=== PATIENT | female | born 1985 | race Caucasian/White ===

== ENCOUNTER 2016-12-17 20:37 | Emergency (ER) | payer OTHER ==
[~2016-12-17] VITALS: Ht 160 cm; Wt 55.5 kg
[2016-12-17 21:07] VITALS: Ht 160 cm; Wt 55.5 kg
[2016-12-17] MEDS ORDERED: CLIN-73 PO (22:19)
[2016-12-17] MEDS ORDERED: CLINDAMYCIN 300 MG INJ IM ONE (22:30)
[2016-12-17] MEDS ORDERED: CLINDAMYCIN 600 MG INJ IM ONE (23:00)
[2016-12-17 23:06] VITALS: BP 109/68; PULSE 78; RESP 17; TEMP 98.5
--- NOTE | 2016-12-17 23:29 | ERD ---
ER Documentation Chief Complaint Date/Time DATE: 12/17/16 TIME: 23:16 Chief Complaint peritonsilar abscess possible drain. PO antibiotics done HPI 31-year-old female complaining of left-sided tonsillar pain 1 week. Patient stated that she was diagnosed with tonsillitis by her PCP, and will was taking amoxicillin. She had finished amoxicillin, but her pain has not improved. She went to see her PCP earlier today, and was told to come to the ED because she has peritonsillar abscess and he needs to be drained. Denies fever or chills. Denies purulent drainage. ROS All systems reviewed and are negative except as per history of present illness. Medications Home Meds Active Scripts Clindamycin Hcl* (Clindamycin Hcl*) 300 Mg Capsule, 300 MG PO TID for 10 Days, CAP Prov:ESTEPHANIE GRESHAM [employer] 12/17/16 Allergies Allergies: Coded Allergies: No Known Allergy (Unverified , 12/17/16) PMhx/Soc Medical and Surgical Hx: pt denies Medical Hx, pt denies Surgical Hx History of Surgery: No Anesthesia Reaction: No Hx Neurological Disorder: No Hx Respiratory Disorders: No Hx Cardiac Disorders: No Hx Psychiatric Problems: No Hx Miscellaneous Medical Probl: No Hx Alcohol Use: No Hx Substance Use: No Hx Tobacco Use: No Smoking Status: Never smoker Physical Exam Vitals Vital Signs Date Time Temp Pulse Resp B/P Pulse Ox O2 Delivery O2 Flow Rate FiO2 12/17/16 23:06 98.5 78 17 109/68 100 Room Air 12/17/16 21:07 99.9 83 20 119/75 100 Physical Exam General: Well-developed, well-nourished, conscious and coherent, in no distress Skin: Warm and dry without rash, good texture and turgor Head: Normocephalic without evidence of trauma Eyes: Sclera and conjunctivae normal; pupils equal, round, and reactive to light; extraocular movements are intact Mouth/throat: Mucous membranes are moist. Left tonsillar erythematous and swollen with purulent exudate, nonfluctuant. Slight uvula deviation to the right, no trismus. Neck: Supple without meningismus or adenopathy. Carotids are equal. Trachea midline. No bruits or JVD Chest: Normal AP diameter. Good expansion without retractions. Nontender. Lungs are clear to auscultate bilaterally with good tidal volume Heart: Regular rate and rhythm. No murmur, rub, or gallops heard Extremities: Full range of motion. Good strength bilaterally. No clubbing, cyanosis, or edema. Peripheral pulses are intact. Sensation intact Neuro: Alert and oriented 4, GCS 15. Cranial nerves grossly intact. Motor and sensory exams nonfocal. Moves all extremities. Speech clear. Gait normal Results 24 hrs Current Medications Medications (Trade) Dose Ordered Sig/Neil Route PRN Reason Start Time Stop Time Status Last Admin Dose Admin Clindamycin Phosphate (Cleocin) 300 mg ONCE ONCE IM 12/17/16 22:30 12/17/16 22:31 DC Clindamycin Phosphate (Cleocin) 300 mg ONCE ONCE IM 12/17/16 23:00 12/17/16 23:01 DC 12/17/16 22:39 Procedures/MDM Well-appearing 31-year-old female sent here by her PCP for possible peritonsillar abscess drainage. Patient has inflammation and exudate on the left tonsil, without fluctuance. Although she does have slight uvular deviation , she does not have any trismus. I doubt that she has peritonsillar abscess. Likely she has strep pharyngitis that has failed amoxicillin. Patient given clindamycin 300 mg p.o. in the ED. Additional clindamycin prescribed for the patient. Patient appears well, stable for discharge and outpatient management. Medical decision making shared with patient and family. Education provided to patient and family. Patient and family expressed understanding of the plan. Medications on discharge: Clindamycin. Follow-up: Primary care provider in 2-3 days or return to ED if worse. The case was reviewed and discussed with Dr. Wang, who agrees with the plan of care including labs, treatment, and advanced imaging as appropriate. Departure Diagnosis: Primary Impression: Acute bacterial tonsillitis Condition: Good Patient Instructions: Pharyngitis, Strep (Presumed) Referrals: [facility] YOU HAVE RECEIVED A MEDICAL SCREENING EXAM AND THE RESULTS INDICATE THAT YOU DO NOT HAVE A CONDITION THAT REQUIRES URGENT TREATMENT IN THE EMERGENCY DEPARTMENT. FURTHER EVALUATION AND TREATMENT OF YOUR CONDITION CAN WAIT UNTIL YOU ARE SEEN IN YOUR DOCTORS OFFICE WITHIN THE NEXT 1-2 DAYS. IT IS YOUR RESPONSIBILITY TO MAKE AN APPOINTMENT FOR FOLOW-UP CARE. IF YOU HAVE A PRIMARY DOCTOR --you should call your primary doctor and schedule an appointment IF YOU DO NOT HAVE A PRIMARY DOCTOR YOU CAN CALL OUR PHYSICIAN REFERRAL HOTLINE AT IF YOU CAN NOT AFFORD TO SEE A PHYSICIAN YOU CAN CHOSE FROM THE FOLLOWING [facility] [address] [facility] [address] [facility]. [facility] [address] [facility] [address] [facility]. [facility] [address] [facility]. [facility] [address] Additional Instructions: Call your primary care doctor TOMORROW for an appointment during the next 2-3 days.See the doctor sooner or return here if your condition worsens before your appointment time. ESTEPHANIE GRESHAM. ADELFO Dec 17, 2016 23:27
== END 2016-12-17 23:09 | disposition home or self-care (01) ==
LOC: FTE 20:37
DX: J03.90 Acute tonsillitis, unspecified (principal)
CPT/HCPCS: 96372